=== PATIENT | female | born 1955 | race Caucasian/White ===

== ENCOUNTER → 2019-01-19 | Outpatient (CLI) | payer OTHER ==
[2019-01-19 13:41] LABS: BASOPHILS ABSOLUTE AUTO 0.04 K/mm3 (0.00-0.23); BASOPHILS PERCENT AUTO 1 % (0-2); EOSINOPHILS ABSOLUTE AUTO 0.21 K/mm3 (0.00-0.68); EOSINOPHILS PERCENT AUTO 4 % (0-6); Hematocrit 44.6 % (33.0-51.0); Hemoglobin 14.8 g/dL (11.5-16.0); IMMATURE GRAN ABSOLUTE AUTO 0.02 K/mm3 (0.00-0.10); IMMATURE GRAN PERCENT AUTO 0 % (0-1); LYMPHOCYTES ABSOLUTE AUTO 1.11 K/mm3 (0.84-5.20); LYMPHOCYTES PERCENT AUTO 22 % (21-46); MONOCYTES ABSOLUTE AUTO 0.41 K/mm3 (0.16-1.47); MONOCYTES PERCENT AUTO 8 % (4-13); Mean Corpuscular HGB 30.6 pg (26.0-34.0); Mean Corpuscular HGB Conc 33.2 g/dL (31.5-36.5); Mean Corpuscular Volume 92 fL (80-100); Mean Platelet Volume 10.6 fL (9.1-12.4); NEUTROPHILS PERCENT AUTO 64 % (41-73); Platelet Count 253 K/mm3 (150-400); RDW Standard Deviation 40.5 fL (35.1-46.3); Red Blood Cell Count 4.84 M/mm3 (3.80-5.20); White Blood Cell Count 4.99 K/mm3 (4.00-11.30)
[2019-01-19 14:13] LABS: Very Low Density Lipoprot Chol 28 mg/dL (6-32)
[2019-01-19 14:19] LABS: Alanine Aminotransfer (ALT/SGP 20 U/L (12-78); Albumin/Globulin Ratio 1.1 (0.8-1.8); Alk Phos 244 U/L (50-136); Anion Gap 5 mmol/L (6-16); Aspartate Aminotrans (AST/SGOT 9 U/L (12-37); Bilirubin, Total 0.5 mg/dL (0.1-1.0); Blood Urea Nitrogen 18 mg/dL (8-24); Bun/Creatinine Ratio 24.7 (12.0-20.0); CHOL/HDL RATIO 3.8; CO2, Blood 30 mmol/L (21-32); Calcium, Blood 9.2 mg/dL (8.5-10.1); Chloride, Blood 97 mmol/L (98-108); Cholesterol 230 mg/dL (50-200); Creatinine, Blood 0.73 mg/dL (0.40-1.00); Globulin, Blood 3.6 g/dL (2.2-4.0); Glomerular Filtration Rate >60 (60-); Glucose, Blood 485 mg/dL (70-99); HDL Cholesterol 60 mg/dL (>39); LDL/HDL RATIO 2.4; Low Density Lipoprotein Chol 142 mg/dL (0-110); Potassium, Blood 4.7 mmol/L (3.5-5.5); Sodium, Blood 132 mmol/L (136-145); Total Protein, Blood 7.6 g/dL (6.4-8.2); Triglycerides 142 mg/dL (30-160)
[2019-01-20 09:10] LABS: HIV SCREEN 4TH GENERATION WRFX Non Reactive (Non Reactive)
[2019-01-22 05:09] LABS: HBSAG SCREEN Negative (Negative); HEP A AB, IGM Negative (Negative); HEP B CORE AB, TOT Negative (Negative); HEP C VIRUS AB <0.1 (0.0-0.9)
== END | disposition home or self-care (01) ==
LOC: LAB SHORT 11:22 → LAB UCHC 11:22
PROVIDERS: Physician Assistant
DX: Z13.220 Encounter for screening for lipoid disorders (principal); Z11.59 Encounter for screening for other viral diseases; E11.9 Type 2 diabetes mellitus without complications
CPT/HCPCS: 80053; 80061; 82043; 83036; 85025

== ENCOUNTER 2019-03-13 08:24 | Day surgery (SDC) | payer OTHER ==
[~2019-03-13] VITALS: Ht 160 cm; Wt 79.2 kg
[~2019-03-13 08:24] MED LIST: ATOR40TA PO; Aspirin EC81 MG PO; INSULANPEN SC; METF500 PO; Novolog100 UNIT/2; Prinivil10 MG PO
--- NOTE | 2019-03-13 08:57 | NUR ---
Ambulatory in Day Surgery Patient confirms NPO status and agrees with scheduled surgery. Patient States Post-Procedure ride home has been arranged. History, Chart, Medications and Allergies reviewed before start of procedure.
--- NOTE | 2019-03-13 10:20 | NUR ---
INTO STEP VIA MARCELO. PT A&OX3. DENIES PAIN OR NAUSEA. VS WDL. GABINO INITIATED.
--- NOTE | 2019-03-13 10:24 | NUR ---
03/13/19 Senait Fermin History, Chart, Medications and Allergies reviewed before start of procedure.PATIENT DETERMINED TO BE ASA APPROPRIATE FOR PROPOFOL SEDATION PRIOR TO START OF PROCEDURE BY .MONITOR INTACT WITH CONTINUOUS PULSE OXIMETRY AND INTERMITTENT BP.3-LEAD EKG REVIEWED WITH PHYSICIAN PRIOR TO START OF PROCEDURE.O2 VIA N/C INTACT THROUGHOUT SEDATION/PROCEDURE.
--- NOTE | 2019-03-13 10:41 | NUR ---
Patient up to Ambulate independently. Gait steady. Discharge instructions reviewed with patient. Patient verbalizes understanding. Copy given to patient to take home. Discharged via wheelchair to private car for ride home.
--- NOTE | 2019-03-13 11:06 | NUR ---
LATE ENTRY: TAP WATER ENEMA GIVEN PRIOR TO COLONOSCOPY DUE TO POOR CLEAN OUT PER PATINT. TOLERATED PROCEDURE WITH CLEAR RESULTS. PROCEEDED WITH COLONOSCOPY.
== END 2019-03-13 10:52 | disposition home or self-care (01) ==
LOC: ORSCMMR 08:24 → ORD 10:30 → ORSCMMR 10:30
PROVIDERS: Internal Medicine Gastroenterology
PROC: 0DB98ZX Excision of Duodenum, Via Natural or Artificial Opening Endoscopic, Diagnostic (ICD-10-PCS; principal; 2019-03-13 10:30)
PROC: 0DB68ZX Excision of Stomach, Via Natural or Artificial Opening Endoscopic, Diagnostic (ICD-10-PCS; principal; 2019-03-13 10:30)
PROC: 0DBN8ZX Excision of Sigmoid Colon, Via Natural or Artificial Opening Endoscopic, Diagnostic (ICD-10-PCS; principal; 2019-03-13 10:30)
DX: Z12.11 Encounter for screening for malignant neoplasm of colon (principal); D12.5 Benign neoplasm of sigmoid colon; K21.9 Gastro-esophageal reflux disease without esophagitis; K29.70 Gastritis, unspecified, without bleeding; K44.9 Diaphragmatic hernia without obstruction or gangrene; E11.9 Type 2 diabetes mellitus without complications; J44.9 Chronic obstructive pulmonary disease, unspecified; I10 Essential (primary) hypertension; E78.00 Pure hypercholesterolemia, unspecified; Z79.4 Long term (current) use of insulin; Z79.899 Other long term (current) drug therapy; Z79.82 Long term (current) use of aspirin
CPT/HCPCS: 82947; 88305; 88342; J2704; J7120

== ENCOUNTER 2019-06-29 02:01 | Inpatient (IN) | payer OTHER ==
[~2019-06-29] VITALS: Ht 160 cm; Wt 80.8 kg
[2019-06-29 03:32] LABS: BASOPHILS ABSOLUTE AUTO 0.05 K/mm3 (0.00-0.23); BASOPHILS PERCENT AUTO 0 % (0-2); EOSINOPHILS ABSOLUTE AUTO 0.13 K/mm3 (0.00-0.68); EOSINOPHILS PERCENT AUTO 1 % (0-6); Hematocrit 38.8 % (33.0-51.0); Hemoglobin 12.6 g/dL (11.5-16.0); IMMATURE GRAN ABSOLUTE AUTO 0.08 K/mm3 (0.00-0.10); IMMATURE GRAN PERCENT AUTO 1 % (0-1); LYMPHOCYTES ABSOLUTE AUTO 1.23 K/mm3 (0.84-5.20); LYMPHOCYTES PERCENT AUTO 8 % (21-46); MONOCYTES PERCENT AUTO 7 % (4-13); Mean Corpuscular HGB 30.9 pg (26.0-34.0); Mean Corpuscular HGB Conc 32.5 g/dL (31.5-36.5); Mean Corpuscular Volume 95 fL (80-100); Mean Platelet Volume 10.1 fL (9.1-12.4); NEUTROPHILS ABSOLUTE AUTO 12.66 K/mm3 (1.96-9.15); NEUTROPHILS PERCENT AUTO 83 % (41-73); Platelet Count 217 K/mm3 (150-400); RDW Coefficient Variation 11.9 % (11.7-14.2); RDW Standard Deviation 41.3 fL (35.1-46.3); Red Blood Cell Count 4.08 M/mm3 (3.80-5.20); White Blood Cell Count 15.25 K/mm3 (4.00-11.30)
[2019-06-29 03:53] LABS: Alanine Aminotransfer (ALT/SGP 21 U/L (12-78); Albumin, Blood 3.4 g/dL (3.4-5.0); Albumin/Globulin Ratio 1.2 (0.8-1.8); Alk Phos 105 U/L (50-136); Anion Gap 4 mmol/L (6-16); Aspartate Aminotrans (AST/SGOT 18 U/L (12-37); Bilirubin, Total 0.5 mg/dL (0.1-1.0); Blood Urea Nitrogen 31 mg/dL (8-24); Bun/Creatinine Ratio 33.8 (12.0-20.0); CO2, Blood 29 mmol/L (21-32); Calcium, Blood 8.6 mg/dL (8.5-10.1); Chloride, Blood 111 mmol/L (98-108); Creatinine, Blood 0.92 mg/dL (0.40-1.00); Globulin, Blood 2.9 g/dL (2.2-4.0); Glomerular Filtration Rate >60 (60-); Glucose, Blood 168 mg/dL (70-99); Potassium, Blood 3.9 mmol/L (3.5-5.5); Sodium, Blood 144 mmol/L (136-145); Total Protein, Blood 6.3 g/dL (6.4-8.2)
[2019-06-29 04:08] LABS: Campylobacter Sp Not Detected (NOT DETECT)
[2019-06-29 04:09] LABS: Adenovirus F 40/41 Not Detected (NOT DETECT); Astrovirus Not Detected (NOT DETECT); Cryptosporidium Not Detected (NOT DETECT); Cyclospora Cayetanensis Not Detected (NOT DETECT); E. Coli O157 Not Detected (NOT DETECT); Entamoeba Histolytica Not Detected (NOT DETECT); Enteroaggregative E. coli-EAEC Not Detected (NOT DETECT); Enteropathogenic E. coli-EPEC Not Detected (NOT DETECT); Enterotoxigenic E. coli-ETEC Not Detected (NOT DETECT); Giardia Lamblia Not Detected (NOT DETECT); Norovirus GI/GII Not Detected (NOT DETECT); Plesiomonas Shigelloides Not Detected (NOT DETECT); Rotavirus A Not Detected (NOT DETECT); Salmonella Sp Not Detected (NOT DETECT); Sapovirus Not Detected (NOT DETECT); Shiga Toxin-prod E. coli-STEC Not Detected (NOT DETECT); Shigella/Enteroin E. coli-EIEC Not Detected (NOT DETECT); Vibrio Cholerae Not Detected (NOT DETECT); Vibrio Sp Not Detected (NOT DETECT); Yersinia Enterocolitica Not Detected (NOT DETECT)
[2019-06-29 18:31] LABS: Hematocrit 38.2 % (33.0-51.0); Hemoglobin 12.9 g/dL (11.5-16.0)
--- NOTE | 2019-06-29 18:46 | NUR ---
SHIFT SUMMARY PT INDEPENDENT IN ROOM TODAY. IV SALINE LOCKED THIS EVENING. HAS HAD BLOOD IN PULLUPS EACH TIME SHE HAS GONE TO RESTROOM. IT HAS FILLED THE PULLUP AND PT EXPRESSING CONCERN. SPOKE WITH MD THIS EVENING WITH LABS ORDERED. H AND H REMAINS STABLE. MEDICATED FOR PAIN NEEDED. HAS HAD EMESIS THIS MORNING AND AFTER LUNCH.
[2019-06-30 05:05] LABS: BASOPHILS ABSOLUTE AUTO 0.04 K/mm3 (0.00-0.23); BASOPHILS PERCENT AUTO 0 % (0-2); EOSINOPHILS ABSOLUTE AUTO 0.05 K/mm3 (0.00-0.68); EOSINOPHILS PERCENT AUTO 1 % (0-6); Hematocrit 37.4 % (33.0-51.0); Hemoglobin 12.2 g/dL (11.5-16.0); IMMATURE GRAN ABSOLUTE AUTO 0.02 K/mm3 (0.00-0.10); IMMATURE GRAN PERCENT AUTO 0 % (0-1); LYMPHOCYTES PERCENT AUTO 15 % (21-46); MONOCYTES ABSOLUTE AUTO 0.95 K/mm3 (0.16-1.47); MONOCYTES PERCENT AUTO 9 % (4-13); Mean Corpuscular HGB 30.7 pg (26.0-34.0); Mean Corpuscular HGB Conc 32.6 g/dL (31.5-36.5); Mean Corpuscular Volume 94 fL (80-100); Mean Platelet Volume 10.3 fL (9.1-12.4); NEUTROPHILS ABSOLUTE AUTO 8.23 K/mm3 (1.96-9.15); NEUTROPHILS PERCENT AUTO 76 % (41-73); Platelet Count 202 K/mm3 (150-400); RDW Coefficient Variation 12.1 % (11.7-14.2); RDW Standard Deviation 42.2 fL (35.1-46.3); Red Blood Cell Count 3.97 M/mm3 (3.80-5.20); White Blood Cell Count 10.89 K/mm3 (4.00-11.30)
--- NOTE | 2019-06-30 05:13 | NUR ---
SHIFT SUMMARY PT CONTINUES TO HAVE SOME INTERMITTENT ABD PAIN AND NAUSEA. ALTHOUGH APPEARS SOMEWHAT IMPROVED. MEDICATED PT X 1 W/ 25 MCG FENTANYL THIS SHIFT. PT DENIED ANY NEED FOR AN ANTIEMETIC. PT IS SLEEPING AT THIS TIME. HAS APPEARED TO SLEEP MOST OF THE SHIFT. PT REPORTS 2-3 BLOODY BOWEL MOVEMENTS THIS EVENING. HEMOGLOBIN REMAINED STABLE AT 12.2 AM. OTHERWISE NO ACUTE CHANGES.
[2019-06-30 05:23] LABS: Anion Gap 4 mmol/L (6-16); Blood Urea Nitrogen 15 mg/dL (8-24); Bun/Creatinine Ratio 19.3 (12.0-20.0); CO2, Blood 28 mmol/L (21-32); Calcium, Blood 8.4 mg/dL (8.5-10.1); Chloride, Blood 110 mmol/L (98-108); Creatinine, Blood 0.78 mg/dL (0.40-1.00); Glomerular Filtration Rate >60 (60-); Glucose, Blood 130 mg/dL (70-99); Potassium, Blood 3.8 mmol/L (3.5-5.5); Sodium, Blood 142 mmol/L (136-145)
--- NOTE | 2019-06-30 15:07 | NUR ---
SHIFT SUMMARY THE PATIENT HAS HAD A GOOD SHIFT THUS FAR. CONTINUES ON PO ABX FOR C-DIFF WITHOUT S/SX OF ADVERSE REACTIONS NOTED OR REPORTED. THE PATIENT CONTINUES TO HAVE FREQUENT, LOOSE BM'S WITH NOTED BLOOD IN IT. VITALS REMAIN STABLE. THE PATIENT IS INDEPENDANT WITH ADL's. THE PATIENT C/O SOME CRAMPING ABDOMENAL PAIN THIS MORNING HOWEVER HAS HAD NO C/O PAIN OF SINCE. THERE HAVE BEEN NO ACUTE CHANGES NOTED THIS SHIFT. WILL CONTINUE TO MONITOR PATIENT.
--- NOTE | 2019-07-01 03:31 | NUR ---
SUMMARY NO ACUTE CHANGES NOTED THROUGH THE NIGHT. PT HAS SLEPT WITH NO PROBLEMS. PAIN MANAGED WITH IV FENT PER EMAR X1 PER PT REQUEST. PT IS TOLERATING PO INTAKE, DENIES N/V. PT REPORTS FREQUENCY OF STOOLS IS SLOWING & "BLOOD CLOTS" ARE GETTING SMALLER. PT IS INDEPENDENT IN THE ROOM. CALL LIGHT IN REACH. WCTM.
[2019-07-01] MEDS ORDERED: Vancocin HCL1000 M1 PO (11:06)
[2019-07-01] MEDS ORDERED: Vsl#3 Capsule1 EACH PO (11:07)
--- NOTE | 2019-07-01 11:22 | NUR ---
DISCHARGE INSTRUCTIONS VERBALIZED TO THE PATIENT WELL A PRINTED COPY GIVEN TO THE PATIENT FOR REFERENCE. EDUCATIONAL MATERIAL GIVEN TO PATIENT WELL. ALL QUESTIONS ANSWERED. IV REMOVED. PATIENT GETTING READY FOR DISCHARGE. FATHER IS COMING FROM HOME TO TRANSPORT PATIENT.
--- NOTE | 2019-07-01 11:51 | NUR ---
PATIENT DISCHARGED HOME AT 1151 WITH HER FATHER.
== END 2019-07-01 11:51 | disposition home or self-care (01) | DRG 872 ==
LOC: ER 02:01 → MEDS 05:45
PROVIDERS: Emergency Medicine; Internal Medicine; ADMIT Hospitalist
DX: A41.4 Sepsis due to anaerobes (principal); A04.72 Enterocolitis due to Clostridium difficile, not specified as recurrent; E78.5 Hyperlipidemia, unspecified; J44.9 Chronic obstructive pulmonary disease, unspecified; I10 Essential (primary) hypertension; R65.20 Severe sepsis without septic shock; E11.9 Type 2 diabetes mellitus without complications; F17.200 Nicotine dependence, unspecified, uncomplicated; Z79.82 Long term (current) use of aspirin; Z79.4 Long term (current) use of insulin
CPT/HCPCS: 0097U; 36415; 80048; 80053; 81001; 82947; 83605; 85014; 85018; 85025; 87040; 87324; 90686; 96361; 96374; 99285-25; A9270; J1650; J2405; J2550; J3010; J3370; J7030

== ENCOUNTER → 2022-11-16 | Outpatient (CLI) | payer OTHER ==
[~2022-11-16] MED LIST changes: +Vancocin HCL1000 M1 PO; +Vsl#3 Capsule1 EACH PO
== END | disposition home or self-care (01) ==
LOC: LAB 17:19 → LAB SHORT 17:19
DX: N39.0 Urinary tract infection, site not specified (principal)
CPT/HCPCS: 87077; 87086; 87186